=== PATIENT | male | born 1985 | race American Indian/Alaskan Native ===

== ENCOUNTER 2018-02-20 00:46 | Emergency (ER) | payer OTHER ==
[2018-02-20 02:50] VITALS: BP 130/76
[2018-02-20] MEDS ORDERED: MOTRIN PO ONE (02:52)
--- NOTE | 2018-02-20 03:39 | XRay Report ---
FINAL REPORT EXAM: XR CHEST ROUTINE 2V HISTORY: chestpain COMPARISON: None available. FINDINGS:: Frontal and lateral views of the chest obtained. Cardiac silhouette is within normal limits. No focal consolidation or effusion. No pneumothorax. Visualized bony thorax is grossly intact. IMPRESSION:: No acute findings.
--- NOTE | 2018-02-20 03:40 | XRay Report ---
FINAL REPORT EXAM: XR SHOULDER 2+V RT HISTORY: right shoulder pain COMPARISON: None available. FINDINGS: Three views of right shoulder obtained. Bony structures are intact. Joint spaces are preserved. No acute fracture dislocation. IMPRESSION: No acute bony abnormality.
--- NOTE | 2018-02-20 03:40 | XRay Report ---
FINAL REPORT EXAM: XR SPINE CERVICAL 2-3V HISTORY: neck pain COMPARISON: None available. FINDINGS: Three views of the cervical spine obtained. Cervical vertebral body heights are preserved. Mild to moderate loss of disc height C7-T1 level. Remaining disc heights are preserved. Odontoid process grossly intact. Prevertebral soft tissues are within normal limits. IMPRESSION: [id number] loss of disc height C7-T1 level. Otherwise, normal height and alignment of the cervical spine.
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
== END 2018-02-20 05:50 | disposition home or self-care (01) ==
LOC: ED 00:46
DX: S46.911A Strain of unspecified muscle, fascia and tendon at shoulder and upper arm level, right arm, initial encounter (principal); S16.1XXA Strain of muscle, fascia and tendon at neck level, initial encounter; R07.89 Other chest pain; F17.200 Nicotine dependence, unspecified, uncomplicated; V89.2XXA Person injured in unspecified motor-vehicle accident, traffic, initial encounter; Y93.89 Activity, other specified; Y92.410 Unspecified street and highway as the place of occurrence of the external cause; Y99.8 Other external cause status
CPT/HCPCS: 71046; 72040; 93005; 93010; 99283